=== PATIENT | female | born 1975 | race Hispanic/Latino ===

== ENCOUNTER → 2021-02-18 | Outpatient (CLI) | payer OTHER | LOC: MAMMO 12:52 | PROVIDERS: ATTEND Internal Medicine | DX: Z12.31 Encounter for screening mammogram for malignant neoplasm of breast (principal) | CPT/HCPCS: 77067 ==

== ENCOUNTER → 2022-02-22 | Outpatient (CLI) | payer OTHER | LOC: MAMMO 14:35 | PROVIDERS: ATTEND Internal Medicine | DX: Z12.31 Encounter for screening mammogram for malignant neoplasm of breast (principal) | CPT/HCPCS: 77067 ==

== ENCOUNTER → 2022-03-04 | Outpatient (CLI) | payer OTHER | LOC: MAMMO 11:50 | PROVIDERS: ATTEND Internal Medicine | DX: R92.8 Other abnormal and inconclusive findings on diagnostic imaging of breast (principal) ==